=== PATIENT | male | born 2000 | race Caucasian/White ===

== ENCOUNTER 2021-11-01 11:40 | Emergency (ER) | payer OTHER ==
[2021-11-01 13:08] LABS: BASOPHIL 0.9 % (0-2); EOSINOPHIL 2.4 % (0-5); HCT 45.7 % (42.0-52.0); HGB 16.3 g/dl (13.2-18.0); LYMPHOCYTE 21.2 % (15-48); MCH 29.5 pg (25.0-31.0); MCHC 35.7 g/dL (32.0-36.0); MCV 82.8 fL (78.0-100.0); MONOCYTE 5.3 % (0-12); MPV 9.1 fL (6.0-9.5); NEUTROPHIL 69.6 % (41-80); NRBC 0; PLT 245 K/uL (150-400); RBC 5.52 M/uL (4.70-6.00); RDW 11.6 % (11.5-14.0); WBC 6.7 K/uL (4.0-10.5)
[2021-11-01 13:28] LABS: ALBUMIN 4.5 g/dL (3.4-5.0); BILIRUBIN - TOTAL 0.5 mg/dL (0.2-1.0); BUN/CREAT RATIO (CALC) 13.8 RATIO; CREATININE 0.87 mg/dL (0.67-1.17); GLOBULIN (CALCULATION) 3.1 g/dL; POTASSIUM 4.2 mmol/L (3.5-5.1); TOTAL PROTEIN 7.6 g/dL (6.4-8.2)
== END 2021-11-01 15:44 | disposition home or self-care (01) ==
LOC: FER 11:40
PROVIDERS: Nurse Practitioner Family
DX: S23.3XXA Sprain of ligaments of thoracic spine, initial encounter (principal); S33.5XXA Sprain of ligaments of lumbar spine, initial encounter; S20.314A Abrasion of middle front wall of thorax, initial encounter; W17.89XA Other fall from one level to another, initial encounter; Y92.89 Other specified places as the place of occurrence of the external cause; Y99.0 Civilian activity done for income or pay; Z28.310 Unvaccinated for COVID-19
CPT/HCPCS: 36415; 71046; 71260; 80053; 85025; Q9967